=== PATIENT | male | born 1970 | race Caucasian/White ===

== ENCOUNTER 2016-10-27 00:05 | Inpatient (IN) ==
[2016-10-27] MEDS: PROPOFOL 1,000 MG/100 ML BOTTLE IV SCH ×5 (00:05→08:00)
[2016-10-27] MEDS ORDERED: PROPOFOL 1,000 MG/100 ML BOTTLE IV ONE (00:14)
--- NOTE | 2016-10-27 00:22 | Emergency Department Note ---
IObey Kasabria, am scribing for, and in the presence of, Aileen Rodas DO 00 :18. IClark Debra, DO, personally performed the services described in this documentation, ascribed by Sara Barnhart in my presence, and it is both accurate and complete . Arrival - Arrival Chief Complaint: Allergic Reaction Stated Complaint: anaphylatic reaction Limitations: No Limitations Source: RN Notes Reviewed - History of Present Illness HPI Narrative: This is a 46 y/o white male presenting to the ED as a transfer from [facility] and is intubated for anaphylactic reaction to an unknown medication. Pt presented to [facility] ED with increasing airway compromise/edema. Pt is stable. Consistency: constant Severity: moderate Review of System - Review of System ROS unobtainable: due to endotracheal tube - Review of System Constitutional: Absent: fever Head/Ears/Nose/Throat: Present: other (edema to throat ) Allergic/Immunologic: Absent: facial swelling Exam - General General appearance: in distress (intubated ) - Head Head exam: Present: atraumatic, normocephalic, normal inspection - Eye Eye exam: Present: normal appearance, PERRL, EOMI - ENT ENT exam: Present: other (intubated. ) - Neck Neck exam: Present: normal inspection, trachea midline. Absent: tenderness - Chest Chest inspection: Present: normal inspection, symmetric chest wall rise, other ( with bag valve manuever). Absent: tenderness - Respiratory Respiratory exam: Present: normal lung sounds bilaterally - Cardiovascular Cardiovascular exam: Present: regular rate, normal rhythm, normal heart sounds - Abdominal Exam Abdominal exam: Present: soft, normal bowel sounds, other (obese). Absent: distention, tenderness - Extremities Exam Extremities exam: Present: normal inspection, normal capillary refill. Absent: pedal edema, calf tenderness - Back Exam Back exam: Present: normal inspection. Absent: tenderness - Skin Skin exam: Present: warm, dry, intact, normal color. Absent: rash, diaphoresis Course Course Narrative: spoke with hospitalist who will admit pt. to ICU Disposition Clinical Impression: Angioedema Case discussed with: patient's family Disposition: Still a Patient Condition: Stable Time of Disposition: 00:23
[2016-10-27] MEDS ORDERED: VECURONIUM 10 MG VIAL IV STA (00:30)
[2016-10-27] MEDS ORDERED: PROPOFOL 200 MG/20 ML VIAL IV STA (00:31)
--- NOTE | 2016-10-27 00:48 | Hospitalist History & Physical ---
Assessment and Plan (1) Angioedema Status: Acute Assessment and plan: Is not quite clear what could be the instigate of this angioedema. Patient is on gabapentin, morphine, Mobic, and Zanaflex. All these medication can cause anaphylaxis. Dilaudid 2 are known to cause anaphylaxis and exfoliative dermatitis. All these medication should be avoided in this patient. Patient will be admitted to the CCU. Will consult pulmonology for airway management. Patient on 100 mL/h of normal saline drip continue propofol. Patient also be put on Solu-Medrol 60 mg IV every 8 hour and Benadryl 50 mg IV every 6 hours. Repeat ABG in the morning. I have ordered a CMP with magnesium and CBC to be drawn. Plan to review the report. Current Visit: Yes History of Present Illness History of present illness: Mr. Sexton is a 46 year old male presented to the ED as a transfer from [facility] and is intubated for anaphylactic reaction to an unknown medication. Pt presented to [facility] ED with increasing airway compromise/edema. At home he takes Zanaflex, gabapentin, morphine and Mobic. He does have allergies to penicillin. He cannot tell me much of this time because is intubated and sedated. He cannot get anymore history. No family members available. Home Medications Medication Instructions Recorded Confirmed Type Unable To Obtain [Unable to Obtain] 10/27/16 10/27/16 History Allergies Allergy/AdvReac Type Severity Reaction Status Date / Time Penicillins Allergy Unknown/Unable Verified 10/27/16 00:28 to obtain Medical,Surgical,& Family Hx - Medical History Musculoskeletal: History of: Musculoskeletal Problems (neuropathy, chronic back pain) - Social History Smoking Status: Never smoker Frequency of Alcohol Use: None Type of Drug Use: None ROS unobtainable: due to endotracheal tube Exam - Constitutional Vitals: Period Temp Pulse Resp BP Sys/Ramírez Pulse Ox Last 24 Hr 97.1 F-97.1 F 139-139 10-10 177-177/114-114 95 General appearance: over weight - Head Head exam: Present: normocephalic, atraumatic - Eye Pupils: Present: CARLOS - ENT ENT exam: Present: other (Order intubated but he noticed the tongue to be swollen) - Neck Neck exam: Present: other (Orally intubated) - Respiratory Respiratory exam: Present: other (Bilateral breast sounds normal) - Cardiovascular Cardiovascular exam: Present: regular rate and rhythm - GI/Abdominal GI/Abdominal exam: Present: normal bowel sounds, soft - Extremities Exam Extremities exam: Present: other (Patient is sedated on Diprivan) - Neurological Exam Neurological exam: Present: other (Patient is sedated) - Psychiatric Psychiatric exam: Present: other (Sedated) - Skin Skin exam: Present: normal color, warm, dry Results - Labs Lab Results: I have reviewed the past 24 hour labs (All labs pending)
[2016-10-27 00:55] LABS: Basophils # 0.1 10*3/uL (0.0-0.2); Basophils % 0.3 % (0.0-0.8); Eosinophils # 0.2 10*3/uL (0.0-0.87); Eosinophils % 1.2 % (0.00-10.9); Hematocrit 47.1 VOL% (42.0-52.0); Hemoglobin 16.3 GM/DL (14.0-18.0); Immature Granulocytes % 0.5 %; Lymphocytes # 3.1 10*3/uL (1.4-4.0); Mean Corpuscular HGB Conc 34.6 GM/DL (32-36); Mean Corpuscular Hemoglobin 31 PG (27-34); Mean Corpuscular Volume 89.7 FL (87-102); Mean Platelet Volume 9.9 FL (9.6-12.0); Monocytes # 0.6 10*3/uL (0.11-0.8); Monocytes % 3.2 % (1.7-12.7); Neutrophils # 15.3 10*3/uL (1.4-7.4); Neutrophils % 78.8 % (38.7-73.9); Platelet Count 290 T/CUMM (130-400); Red Blood Count 5.25 MC/CUMM (3.8-5.5); Red Cell Distribution Width 12.2 % (9.3-17.3); White Blood Count 19.4 T/CUMM (4-12)
[2016-10-27] MEDS ORDERED: diphenhydrAMINE 50 MG/1 ML VIAL ONE (01:12)
[2016-10-27] MEDS ORDERED: methylPREDNISolone SOD SUC 125 MG/2 ML VIAL ONE (01:12)
[2016-10-27 01:13] LABS: Albumin 4.3 G/DL (3.4-5.0); Bilirubin,Total 0.9 MG/DL (0.2-1.0); Calcium 8.5 MG/DL (8.5-10.1); Osmolality,Calculated 290.1 MOS/KG (273-304); Total Protein 7.7 G/DL (6.4-8.3)
[2016-10-27] MEDS: diphenhydrAMINE 50 MG/1 ML VIAL IV SCH ×4 (01:13→18:05)
[2016-10-27] MEDS: SODIUM CHLORIDE 0.9% 1,000 ML IV SCH ×3 (01:13→12:48)
[2016-10-27] MEDS: methylPREDNISolone SOD SUC 40 MG/1 ML VIAL IV SCH ×3 (01:14→17:47)
[2016-10-27 03:08] LABS: ABG Base Excess -2.8 MMOL/L (-2.5-2.5); ABG Oxygen Saturation 91.9 % (95-100); ABG PCO2 49.2 MM HG (35-48); ABG PH 7.307 (7.35-7.45); ABG PO2 65.4 MM HG (80-95); ABG TCO2 25.6 MMOL/L (23-27); Allen Test Positive; Pt O2 Delivery Device Ventilator
[2016-10-27] MEDS: POTASSIUM CHLORIDE RIDER 10 MEQ in PREMIX 1 EACH IV PRN ×2 (04:08→05:10)
[2016-10-27 05:00] LABS: Basophils % 0.2 % (0.0-0.8); Hematocrit 43.8 VOL% (42.0-52.0); Hemoglobin 15.1 GM/DL (14.0-18.0); Immature Granulocytes % 0.5 %; Immature Granulocytes Absolute 0.06 #; Lymphocytes # 0.5 10*3/uL (1.4-4.0); Lymphocytes % 4.4 % (21.2-54.2); Mean Corpuscular HGB Conc 34.5 GM/DL (32-36); Mean Corpuscular Hemoglobin 31 PG (27-34); Mean Corpuscular Volume 89.4 FL (87-102); Mean Platelet Volume 10.3 FL (9.6-12.0); Monocytes # 0.2 10*3/uL (0.11-0.8); Monocytes % 1.4 % (1.7-12.7); Neutrophils # 11.4 10*3/uL (1.4-7.4); Neutrophils % 93.5 % (38.7-73.9); Platelet Count 259 T/CUMM (130-400); Red Cell Distribution Width 12.3 % (9.3-17.3); White Blood Count 12.1 T/CUMM (4-12)
[2016-10-27 05:17] LABS: Calcium 8.1 MG/DL (8.5-10.1); Osmolality,Calculated 282.4 MOS/KG (273-304); Potassium 4.5 MMOL/L (3.5-5.1)
[2016-10-27 05:26] LABS: Band Neutrophils 1 % (0-10); Hypochromasia Slight; Lymphocytes 3 % (20-55); Platelet Estimate Normal; Segmented Neutrophils 95 % (50-85); Total Cells Counted 100
[2016-10-27] MEDS: FAMOTIDINE 20 MG/2 ML VIAL IV SCH ×2 (08:43→20:44)
--- NOTE | 2016-10-27 09:10 | Pulmonology Consult Note ---
Assessment and Plan (1) Angioedema Status: Acute Assessment and plan: Appears to have resolved. Patient on minimal vent settings. Will plan to extubate this monring with close monitoring after. May need to see Allergy as outpatient if no obvious cause can be found Current Visit: Yes History of Present Illness History of present illness: Mr. Sexton is a 46 year old male Consulted for ventilator management. Patient transferred last night from outside hospital, intubated for facial swelling/angioedema. Patient is not an ACEI and PCN is his only known allergy. Unsure what caused this at this time. This morning patient has no facial or tongue swelling. Home Medications Medication Instructions Recorded Confirmed Type Unable To Obtain [Unable to Obtain] 10/27/16 10/27/16 History Allergies Allergy/AdvReac Type Severity Reaction Status Date / Time Penicillins Allergy Unknown/Unable Verified 10/27/16 00:28 to obtain ROS unobtainable: due to endotracheal tube Exam (Pulmonay) H&P - Constitutional Vitals: Period Temp Pulse Resp BP Sys/Ramírez Pulse Ox Last 24 Hr 96.5 F-97.2 F 80-139 10-28 95-186/52-114 93-98 General appearance: normal weight, no acute distress - Head Head exam: Present: normal inspection - ENT ENT exam: Present: normal exam - Respiratory Respiratory exam: Present: clear to auscultation bilaterally - Cardiovascular Cardiovascular exam: Present: regular rate and rhythm Medical,Surgical,& Family Hx - Medical History Musculoskeletal: History of: Musculoskeletal Problems (neuropathy, chronic back pain) - Social History Smoking Status: Never smoker Frequency of Alcohol Use: None Type of Drug Use: None Results - Labs CBC & BMP: 10/27/16 03:52 10/27/16 03:52 Lab Results: I have reviewed the past 24 hour labs - Diagnostic Findings Procedure: Chest x-ray: image reviewed by me (reviewd)
[2016-10-27 09:42] LABS: Barbiturates Screen,Urine Negative (Negative); Benzodiazepines Screen,Urine Positive (Negative); Cannabinoid Screen,Urine Negative (Negative); Opiate Screen,Urine Positive (Negative); Phencyclidine Screen,Urine Negative (Negative)
--- NOTE | 2016-10-27 10:20 | XRay Report ---
Portable chest Date: 10/27/2016 Clinical history: Ventilator Comparison: 10/26/2016 Technique: Portable AP sitting chest Findings: The heart is minimally enlarged with the endotracheal tube remaining in satisfactory position. Reduced subsegmental atelectasis with stable mediastinal and osseous structures. Impression: Endotracheal tube remains in satisfactory position. Minimally reduced atelectasis in the lungs. PROCEDURE INTERPRETED AT [facility] DEPARTMENT OF RADIOLOGY Final Report Signed by: Dr. Verona Tolbert
[2016-10-27] MEDS: MORPHINE ER 30 MG TABLET PO PRN ×2 (11:20→23:00)
[2016-10-27] MEDS: GABAPENTIN 400 MG CAPSULE PO SCH ×2 (15:02→20:44)
--- NOTE | 2016-10-27 15:58 | Hospitalist Progress Note ---
Exam - Constitutional Vitals: Period Temp Pulse Resp BP Sys/Ramírez Pulse Ox Last 24 Hr 96.5 F-98.4 F 80-139 10-28 94-186/51-114 93-98 Results - Labs CBC & BMP: 10/27/16 03:52 10/27/16 03:52 Specialty Discharge - Follow Up or Referrals Follow up with: Clif Avendaño MD [Physician] - 1 Week (anaphylaxis 4 hours after eating a hamburger, suspect alpha-gal, lab pending.)
[2016-10-27] MEDS ORDERED: tiZANidine 4 MG TABLET PO SCH (21:00)
[2016-10-28] MEDS: diphenhydrAMINE 50 MG/1 ML VIAL IV SCH ×2 (01:43→06:47)
[2016-10-28] MEDS: methylPREDNISolone SOD SUC 40 MG/1 ML VIAL IV SCH ×2 (01:43→09:16)
[2016-10-28 06:16] LABS: Basophils % 0.1 % (0.0-0.8); Hematocrit 42.8 VOL% (42.0-52.0); Hemoglobin 14.6 GM/DL (14.0-18.0); Immature Granulocytes % 1.3 %; Immature Granulocytes Absolute 0.27 #; Lymphocytes # 1.2 10*3/uL (1.4-4.0); Mean Corpuscular HGB Conc 34.1 GM/DL (32-36); Mean Corpuscular Hemoglobin 31 PG (27-34); Mean Corpuscular Volume 89.4 FL (87-102); Mean Platelet Volume 10.2 FL (9.6-12.0); Monocytes # 0.6 10*3/uL (0.11-0.8); Monocytes % 2.8 % (1.7-12.7); Neutrophils # 18.2 10*3/uL (1.4-7.4); Neutrophils % 89.8 % (38.7-73.9); Platelet Count 270 T/CUMM (130-400); Red Blood Count 4.79 MC/CUMM (3.8-5.5); Red Cell Distribution Width 12.5 % (9.3-17.3); White Blood Count 20.2 T/CUMM (4-12)
[2016-10-28 06:46] LABS: Hypochromasia Slight; Platelet Estimate Adequate
[2016-10-28 06:48] LABS: Osmolality,Calculated 286.3 MOS/KG (273-304); Potassium 3.9 MMOL/L (3.5-5.1)
--- NOTE | 2016-10-28 08:34 | EKG Report ---
Stationary ECG Study [facility] ER Test Date: 10/27/2016 12:12:18 AM Pat Name: APOORVA SULTANA Department: Room: 238 Gender: M Consultant Dietitian: : 1970 Requested by: Aileen Rodas Order Number: [id number] [place] MD: ROLF ALVARENGA Intervals [place] Rate: 117 P: 63 LA: 180 QRS: 44 QRSD: 112 T: 43 QT: 288 QTc: 357 Interpretive Statements SINUS TACHYCARDIA MODERATE INTRAVENTRICULAR CONDUCTION DELAY T-WAVE ABNORMALITY Electronically Signed On 10-29-16 20:21:23 CDT by ROLF ALVARENGA [email or web address]
[2016-10-28] MEDS: FAMOTIDINE 20 MG/2 ML VIAL IV SCH (09:15)
[2016-10-28] MEDS: GABAPENTIN 400 MG CAPSULE PO SCH (09:17)
[2016-10-28] MEDS: MORPHINE ER 30 MG TABLET PO PRN (09:18)
--- NOTE | 2016-10-28 09:27 | Discharge Summary ---
Hospital Course - Hospital Course Hospital Course: Discharge diagnosis: Anaphylactic reaction, possibly due to meat The patient presented to the hospital in anaphylactic shock. He was admitted to the ICU and intubated. He was given steroids. History is consistent with symptoms that began about 4 hours after eating a hamburger. He had just started eating some frosted flakes with milk when the symptoms began. He responded rapidly, and was extubated after about 24 hours. He was then moved out to a room. He continued to improve. On the day of discharge, he is completely asymptomatic. We discussed the possibility of a meat allergy. He is going to follow-up with allergy regarding further testing. We will also send him home with an EpiPen. Occasion reconciliation has been performed. He will avoid beef products. Activity as tolerated. Follow-up with allergy as described above. Specialty Discharge - Follow Up or Referrals Follow up with: Clif Avendaño MD [Physician] - 1 Week (anaphylaxis 4 hours after eating a hamburger, suspect alpha-gal, lab pending.) Discharge Plan - Discharge Data Disposition: Disch To Home/Self Care Condition at Discharge: Stable Discharge Diet: advance to your usual diet Activity: resume usual activities as tolerated Hygiene: no restrictions Weight Bearing at Discharge: full weight bearing Driving: no restrictions - Discharge Medications New EPINEPHrine [Epipen 2-Gasper] 0.3 mg IJ DIRECTED #1 auto.injct predniSONE TAB [PredniSONE] 20 mg PO DAILY #5 tablet Continue tiZANidine [Zanaflex] 1 PO BEDTIME Meloxicam 1 PO DAILY HYDROcodone/ACETAMIN 10-325 [Machias 10-325] 1 TID PRN PRN Reason: Pain Moderate To Severe (4-10) Gabapentin 1 PO TID Morphine Sulfate 1 PO TID PRN PRN Reason: Pain Moderate To Severe (4-10) - Follow Up or Referral Follow Up: Clif Avendaño MD [Physician] - 1 Week (anaphylaxis 4 hours after eating a hamburger, suspect alpha-gal, lab pending.) - Forms/Instructions Exam - Constitutional Vitals: Period Temp Pulse Resp BP Sys/Ramírez Pulse Ox Last 24 Hr 98.1 F-100.5 F 78-105 15-20 94-141/51-77 93-98 Heart is regular with no murmur or gallop. Lungs are completely clear. There is no angioedema or urticaria noted. He is awake and alert Discharge Results Procedures and tests throughout hospitalization: Pending Orders 10/27/16 09:35 Tryptase, Serum Stat 10/27/16 19:34 Alpha-Gal Panel Routine Labs on day of discharge: Labs from last 24 hours 10/28/16 10/28/16 10/27/16 05:11 05:11 09:14 WBC 20.2 H D RBC 4.79 Hgb 14.6 Hct 42.8 MCV 89.4 MCH 31 MCHC 34.1 RDW 12.5 Plt Count 270 MPV 10.2 Neut % (Auto) 89.8 H Lymph % (Auto) 6.0 L [place] % (Auto) 2.8 Eos % (Auto) 0.0 Baso % (Auto) 0.1 Neut # (Auto) 18.2 H Lymph # (Auto) 1.2 L [place] # (Auto) 0.6 Eos # (Auto) 0.0 Baso # (Auto) 0.0 Immature Gran % 1.3 Nucleated RBC % 0.0 Immature Gran # 0.27 Nucleated RBCs # 0.00 Platelet Estimate Adequate Hypochromasia Slight Morphology Comment Sodium 141 Potassium 3.9 Chloride 106 Carbon Dioxide 25 Anion Gap 13.9 BUN 19 H Creatinine 1.00 GFR Calculation 129 BUN/Creatinine Ratio 19.00 Glucose 163 H Calculated Osmolality 286.3 Calcium 9.0 Urine Opiates Screen Positive H Ur Barbiturates Screen Negative Ur Phencyclidine Scrn Negative U Amphetamine/Methamph Negative U Benzodiazepines Scrn Positive H U Cocaine Metab Screen Negative U Cannabinoids Screen Negative DS: Provider Date of admission: 10/27/16 00:40 Primary care physician: . No PCP Attending physician on admission: Jamie Monroe MD Consults: 10/27/16 02:11 Consult to Physician [CONS] Routine Comment: Consulting Provider: Consult to Specialist Group: Pulmonology When should Consulting Provider be notified: In am 10/27/16 02:32 Consult to Pastoral Services [CONS] Routine Comment: Pastoral Screen: Request Dental Billing Specialist Visit Pastoral Screen Source of Request: Patient Discharging clinician: Joao Ruvalcaba MD Expected date of discharge: 10/28/16
[2016-10-28 11:15] VITALS: BP 129/78
== END 2016-10-28 11:45 | disposition home or self-care (01) | DRG 916 ==
LOC: EDBD → EDUNIT# → N.ED 00:05 → N.EDINP 00:40 → SUATTDRO 00:40 → N.ICU 01:40 → N.2E 15:50
PROVIDERS: ADMIT Internal Medicine Infectious Disease; ATTEND Internal Medicine Geriatric Medicine

== ENCOUNTER 2018-01-14 09:23 | Observation (INO) ==
[2018-01-14] MEDS ORDERED: ACETAMINOPHEN 325 MG TABLET PO PRN (11:49)
[2018-01-14] MEDS ORDERED: MORPHINE 4 MG/1 ML VIAL IV PRN (11:49)
[2018-01-14] MEDS ORDERED: DOCUSATE SODIUM 100 MG CAPSULE PO PRN (11:49)
[2018-01-14] MEDS ORDERED: NITROGLYCERIN SL 0.4 MG TABLET SL PRN (11:49)
[2018-01-14] MEDS ORDERED: POTASSIUM CHLORIDE 20 MEQ TABLET PO PRN (11:49)
[2018-01-14] MEDS: SODIUM CHLORIDE 0.9% 1,000 ML IV SCH (12:28)
[2018-01-14 12:44] LABS: Basophils # 0.1 10*3/uL (0.0-0.2); Basophils % 1.1 % (0.0-0.8); Eosinophils # 0.2 10*3/uL (0.0-0.87); Eosinophils % 2.7 % (0.00-10.9); Hematocrit 44.5 VOL% (42.0-52.0); Immature Granulocytes % 0.3 %; Immature Granulocytes Absolute 0.02 #; Lymphocytes # 1.9 10*3/uL (1.4-4.0); Lymphocytes % 25.8 % (21.2-54.2); Mean Corpuscular Hemoglobin 32 PG (27-34); Mean Corpuscular Volume 89.4 FL (87-102); Mean Platelet Volume 9.6 FL (9.6-12.0); Monocytes # 0.4 10*3/uL (0.11-0.8); Monocytes % 5.9 % (1.7-12.7); Neutrophils # 4.8 10*3/uL (1.4-7.4); Neutrophils % 64.2 % (38.7-73.9); Platelet Count 276 T/CUMM (130-400); Red Blood Count 4.98 MC/CUMM (3.8-5.5); Red Cell Distribution Width 12.2 % (9.3-17.3); White Blood Count 7.4 T/CUMM (4-12)
[2018-01-14 13:03] LABS: Albumin 3.9 G/DL (3.4-5.0); Bilirubin,Total 0.9 MG/DL (0.2-1.0); Calcium 9.3 MG/DL (8.5-10.1); Osmolality,Calculated 275.5 MOS/KG (273-304); Potassium 3.7 MMOL/L (3.5-5.1)
[2018-01-14] MEDS: LISINOPRIL 10 MG TABLET PO SCH (13:51)
[2018-01-14] MEDS: METOPROLOL TARTRATE 25 MG TABLET PO SCH ×2 (13:51→20:42)
[2018-01-14] MEDS: ONDANSETRON 4 MG/2 ML VIAL IV PRN ×2 (13:52→19:22)
[2018-01-14] MEDS ORDERED: ENOXAPARIN 40 MG/0.4 ML SYRINGE SUBCUT SCH (14:00)
[2018-01-14 14:10] LABS: Folate 22.7 NG/ML (5.4-24.0)
[2018-01-14] MEDS ORDERED: MAGNESIUM SULF RIDER 2 GM in PREMIX 1 EACH IV PRN (15:12)
[2018-01-14] MEDS ORDERED: POTASSIUM CHLORIDE RIDER 10 MEQ in PREMIX 1 EACH IV PRN (15:12)
[2018-01-14 16:20] LABS: Apearance,Urine CLEAR (Clear); Bilirubin,Urine Negative (Negative); Blood, Urine Small mg/dL (Negative); Glucose,Urine (UA) Negative (Negative); Ketones,Urine Negative (Negative); Mucus,Urine Occasional /LPF (Occasional); Nitrite,Urine Negative (Negative); Protein,Urine Negative; Urine Color Yellow (Yellow); Urine Specific Gravity 1.025 (1.001-1.035); Urine Urobilinogen < 2.0 EU/DL (0.2-1.0); WBC,Urine <1 /HPF (0-6)
[2018-01-14] MEDS ORDERED: MORPHINE ER 30 MG TABLET PO PRN (17:16)
[2018-01-14] MEDS ORDERED: tiZANidine 4 MG TABLET PO PRN (17:23)
[2018-01-14] MEDS: GABAPENTIN 400 MG CAPSULE PO SCH ×2 (17:31→20:42)
[2018-01-14] MEDS ORDERED: ATORVASTATIN 20 MG TABLET PO SCH (21:00)
[2018-01-15] MEDS: SODIUM CHLORIDE 0.9% 1,000 ML IV SCH ×4 (00:45→15:07)
[2018-01-15 05:01] LABS: Basophils # 0.1 10*3/uL (0.0-0.2); Basophils % 0.8 % (0.0-0.8); Eosinophils # 0.3 10*3/uL (0.0-0.87); Hematocrit 42.7 VOL% (42.0-52.0); Hemoglobin 14.7 GM/DL (14.0-18.0); Immature Granulocytes % 0.2 %; Immature Granulocytes Absolute 0.02 #; Lymphocytes % 34.1 % (21.2-54.2); Mean Corpuscular HGB Conc 34.4 GM/DL (32-36); Mean Corpuscular Hemoglobin 31 PG (27-34); Mean Corpuscular Volume 90.1 FL (87-102); Monocytes # 0.8 10*3/uL (0.11-0.8); Monocytes % 9.2 % (1.7-12.7); Neutrophils # 4.6 10*3/uL (1.4-7.4); Neutrophils % 52.7 % (38.7-73.9); Platelet Count 267 T/CUMM (130-400); Red Blood Count 4.74 MC/CUMM (3.8-5.5); Red Cell Distribution Width 12.4 % (9.3-17.3); White Blood Count 8.7 T/CUMM (4-12)
[2018-01-15 05:17] LABS: Calcium 8.8 MG/DL (8.5-10.1); Osmolality,Calculated 276.4 MOS/KG (273-304); Potassium 3.7 MMOL/L (3.5-5.1)
[2018-01-15 06:05] LABS: Risk Ratio 5.42
[2018-01-15] MEDS: ONDANSETRON 4 MG/2 ML VIAL IV PRN (06:20)
[2018-01-15] MEDS ORDERED: diphenhydrAMINE CAP 25 MG CAPSULE PO ONE (06:30)
[2018-01-15] MEDS ORDERED: DIAZEPAM 5 MG TABLET PO ONE (06:30)
[2018-01-15] MEDS: LISINOPRIL 10 MG TABLET PO SCH (07:59)
[2018-01-15] MEDS: METOPROLOL TARTRATE 25 MG TABLET PO SCH (07:59)
[2018-01-15] MEDS: GABAPENTIN 400 MG CAPSULE PO SCH ×2 (07:59→14:14)
[2018-01-15] MEDS ORDERED: PANTOPRAZOLE 40 MG TABLET PO SCH (09:00)
[2018-01-15] MEDS ORDERED: NITROGLYCERIN DRIP 50 MG/250 ML BOTTLE IV ONE (09:07)
[2018-01-15] MEDS ORDERED: fentaNYL 100 MCG/2 ML VIAL ONE (09:07)
[2018-01-15] MEDS ORDERED: LIDOCAINE 1% 20 ML VIAL ONE (09:07)
[2018-01-15] MEDS ORDERED: MIDAZOLAM 2 MG/2 ML VIAL ONE (09:07)
[2018-01-15] MEDS ORDERED: VERAPAMIL 5 MG/2 ML VIAL ONE (09:07)
[2018-01-15] MEDS ORDERED: ASPIRIN 325 MG TABLET ONE (09:24)
[2018-01-15] MEDS ORDERED: PROMETHAZINE 25 MG/1 ML VIAL ONE (09:26)
[2018-01-15] MEDS ORDERED: ENOXAPARIN 60 MG/0.6 ML SYRINGE ONE (09:34)
[2018-01-15 16:23] VITALS: BP 110/70
[2018-01-16] MEDS ORDERED: ASPIRIN CHEW 81 MG TABLET PO SCH (09:00)
[2018-01-16] MEDS ORDERED: amLODIPine 5 MG TABLET PO SCH (09:00)
== END 2018-01-15 17:49 | disposition home or self-care (01) ==
LOC: N.TELES → SUATTDRO 11:30
PROVIDERS: ADMIT Internal Medicine; ATTEND Internal Medicine
PROC: CLCCHCL (ICD-10-PCS; 2018-01-15 09:15)